=== PATIENT | male | born 1945 | race Caucasian/White ===

== ENCOUNTER 2025-06-05 08:55 | Day surgery (SDC) | payer OTHER, SELFPAY ==
[2025-06-04 14:46] VITALS: BMI 31.5
[2025-06-05] VITALS (9 sets, daily range): BP systolic 115–170; BP diastolic 67–92; PULSE 60–71; RESP 12–19; TEMP 36.7–36.9; O2SAT 92–100; BMI 31.5
[2025-06-05] MEDS: SODIUM CHLORIDE 0.9% 500 ML 500 ML 20 ML IV (10:14)
[2025-06-05] MEDS: BENZOCAINE 20% (Hurricaine) SPRAY 1 DOSE TOP (10:14)
[2025-06-05] MEDS: fentaNYL CIT INJ 50 mCg/ML AMP 2ML (ASD USE ONLY) IVP (10:16)
[2025-06-05] MEDS: MIDAZOLAM INJ 1 MG/ML VIAL 2 ML (ASD USE ONLY) 2 MG IVP (10:16)
== END 2025-06-05 11:25 | disposition home or self-care (01) ==
PROVIDERS: PCP Family Medicine; Referring Provider Specialist; Visit Provider Specialist
PROC: (CPT 43239; principal; 2025-06-05 11:00)
DX: K22.2 Esophageal obstruction (principal); K20.90 Esophagitis, unspecified without bleeding; I10 Essential (primary) hypertension; Z79.899 Other long term (current) drug therapy; K29.50 Unspecified chronic gastritis without bleeding
CPT/HCPCS: 43239; 43450; A4217; A4649; J1200; J2250; J3010; J7999; A9270